=== PATIENT | female | born 1975 ===

== ENCOUNTER 2017-11-25 13:08 | Emergency (ER) | payer OTHER ==
[2017-11-25 13:26] VITALS: RESP 18; O2SAT 97
[2017-11-25] MEDS ORDERED: cefTRIAXone 250 MG, Lidocaine Hydrochloride 1% 1 ML IM ONE (14:10)
[2017-11-25 14:22] LABS: HCG,QUALITATIVE URINE NEGATIVE (NEGATIVE)
[2017-11-25 14:25] LABS: SQUAMOUS EPITHIAL 5 /hpf (0-5); URINE BACTERIA RARE (<OCC); URINE BILIRUBIN NEGATIVE (NEGATIVE); URINE BLOOD 3+ (NEGATIVE); URINE CLARITY Hazy (Clear); URINE COLOR Yellow (YELLOW); URINE GLUCOSE (UA) NORMAL (Normal); URINE LEUKOCYTE ESTERASE 3+ Leu/uL (Negative); URINE PROTEIN 1+ mg/dL (NEGATIVE); URINE UROBILINOGEN NORMAL mg/dL (0.2-1.0)
--- NOTE | 2017-11-25 14:32 | C.PDOC ---
History Of Present Illness 42 year old female presents to the ER with complaints of vaginal discharge and discomfort for the past 3 months. Patient also reports having some vaginal bleeding, but is unsure if it is her menses. Patient admits to having recent unprotected sex and possiblity of . Patient denies vomiting, diarrhea , dysuria, hematuria, fever, or flank pain. Time Seen by Provider: 11/25/17 13:22 Chief Complaint (Nursing): Female Genitourinary History Per: Patient History/Exam Limitations: no limitations Onset/Duration Of Symptoms: Days Current Symptoms Are (Timing): Still Present Severity: Mild Quality Of Discomfort: Unable To Describe, "Pain" Associated Symptoms: Other (Vaginal discharge and discomfort). denies: Fever, Nausea, Vomiting, Diarrhea, Urinary Symptoms Alleviating Factors: None Recent travel outside of the [place]: No Abnormal Vaginal Bleeding: Yes Past Medical History Reviewed: Historical Data, Nursing Documentation, Vital Signs Vital Signs: Last Vital Signs Temp 98.8 F 11/25/17 14:48 Pulse 87 11/25/17 14:48 Resp 18 11/25/17 14:48 BP 115/75 11/25/17 14:48 Pulse Ox 97 11/25/17 17:49 - Medical History PMH: Back Problems (CHRONIC BACK PAIN) Family History: States: No Known Family Hx - Social History Hx Tobacco Use: No Hx Alcohol Use: No Hx Substance Use: No - Immunization History Hx Tetanus Toxoid Vaccination: No Hx Influenza Vaccination: No Hx Pneumococcal Vaccination: No Review Of Systems Constitutional: Negative for: Fever, Chills Cardiovascular: Negative for: Chest Pain Respiratory: Negative for: Cough, Shortness of Breath Gastrointestinal: Negative for: Nausea, Vomiting, Diarrhea, Hematochezia, Hematemesis Genitourinary: Positive for: Vaginal Discharge, Vaginal Bleeding, Other ( Vaginal discomfort). Negative for: Dysuria, Hematuria Skin: Negative for: Rash Physical Exam - Physical Exam Appears: Well, Non-toxic, No Acute Distress Skin: Normal Color, Warm, Dry Eye(s): bilateral: Normal Inspection Oral Mucosa: Moist Cardiovascular: Rhythm Regular Respiratory: Normal Breath Sounds, No Rales, No Rhonchi, No Wheezing Gastrointestinal/Abdominal: Normal Exam, Bowel Sounds, Soft, No Tenderness Pelvic: Normal Bimanual Exam, No Vaginal Bleeding, Vaginal Discharge (Thin scant white), No Cervical Motion Tenderness (Os is closed, normal appearing cervix, no lesions), No Adnexal Tenderness, Other (Os is closed, normal appearing cervix) Neurological/Psych: Oriented x3 ED Course And Treatment O2 Sat by Pulse Oximetry: 97 (Room air) Pulse Ox Interpretation: Normal Progress Note: UA, Upreg and GC/ chlamydia swab ordered. Patient given IM Rocephin and PO Azithromycin. Rx for metrogel given. Patient instructed to follow up with prior authorization nurse within 1 week, and she understands she should return to ED if symptoms worsen. Reevaluation Time: 14:30 Reassessment Condition: Improved Disposition Counseled Patient/Family Regarding: Studies Performed, Diagnosis, Need For Followup, Rx Given - Disposition Referrals: Asuncion Gao MD [Medical Doctor] - Disposition: HOME/ ROUTINE Disposition Time: 14:30 Condition: STABLE Additional Instructions: FOLLOW UP WITH YOUR DOCTOR/CLINIC IN 1-2 DAYS HAVE SEXUAL PARTNER(S) TESTED/TREATED RETURN TO ER IF SYMPTOMS WORSEN Prescriptions: Metronidazole [Metrogel-Vaginal] 1 ea VG HS #1 tube Instructions: Vaginal Discharge in Adults Forms: [facility] (Syriac), General Discharge Instructions Print Language: PERSIAN - Clinical Impression Clinical Impression: Cervicitis, Vaginal discharge - Scribe Statement The provider has reviewed the documentation as recorded by the Scribe Jeremy Wesley All medical record entries made by the Scribe were at my direction and personally dictated by me. I have reviewed the chart and agree that the record accurately reflects my personal performance of the history, physical exam, medical decision making, and the department course for this patient. I have also personally directed, reviewed, and agree with the discharge instructions and disposition.
[2017-11-25 14:49] VITALS: BP 115/75; PULSE 87; TEMP 98.8
== END 2017-11-25 14:50 | disposition home or self-care (01) ==
LOC: C.ER 13:08
DX: N89.8 Other specified noninflammatory disorders of vagina (principal); N72 Inflammatory disease of cervix uteri
CPT/HCPCS: 81001; 84703; 87086; 87491; 87591; 96372; 99284; J0696

== ENCOUNTER 2018-03-01 14:59 | Emergency (ER) | payer MEDICAID, OTHER ==
[2018-03-01 15:37] VITALS: RESP 18
[2018-03-01] MEDS ORDERED: Sodium Chloride 0.9% 1,000 ML IV STA (16:16)
[2018-03-01] MEDS ORDERED: Sodium Chloride 0.9% 1,000 ML ONE (16:26)
--- NOTE | 2018-03-01 16:39 | C.PDOC ---
History Of Present Illness 42 y/o female with history of Hiatal hernia and lives on [facility] presents to ED with c/o loose stool for 1 week. Patient states because she lives in [place] cannot cook, no refrigerator or microwave and only eats out. Patient reports loss of appetite associated with nausea and lightheadedness. Patient has history of vertigo but does not take medication. Patient denies fever, chills, recent travel, headache, blood in stool or any other complaints at this time. Time Seen by Provider: 03/01/18 15:41 Chief Complaint (Nursing): GI Problem History Per: Patient History/Exam Limitations: no limitations Onset/Duration Of Symptoms: Days Current Symptoms Are (Timing): Still Present Past Medical History Reviewed: Historical Data, Nursing Documentation, Vital Signs Vital Signs: Last Vital Signs Temp 98.3 F 03/01/18 15:36 Pulse 95 H 03/01/18 15:36 Resp 18 03/01/18 15:36 BP 118/75 03/01/18 15:36 Pulse Ox 99 03/01/18 15:36 - Medical History PMH: Back Problems (CHRONIC BACK PAIN), Hiatal Hernia Surgical History: No Surg Hx Family History: States: No Known Family Hx - Social History Hx Tobacco Use: No Hx Alcohol Use: No Hx Substance Use: No - Immunization History Hx Tetanus Toxoid Vaccination: No Hx Influenza Vaccination: No Hx Pneumococcal Vaccination: No Review Of Systems Constitutional: Negative for: Fever, Chills Gastrointestinal: Positive for: Nausea, Diarrhea. Negative for: Vomiting, Abdominal Pain Skin: Negative for: Rash Physical Exam - Physical Exam Additional Physical Exam Comments: Constitutional: No acute distress. Head: Normocephalic. Atraumatic. Eyes: PERRL. ENT: Moist mucous membranes. Neck: Supple. Cardiovascular: Regular rate. Radial pulse 2+ bilaterally. Chest: No tenderness. Respiratory: Clear to auscultation bilaterally. GI: Soft. Nontender. Nondistended. Back: No CVA tenderness. Musculoskeletal: No tenderness or swelling of extremities. Skin: No rash. Neurologic: Alert, no focal deficit. ED Course And Treatment - Laboratory Results Result Diagrams: 03/01/18 16:33 03/01/18 16:33 O2 Sat by Pulse Oximetry: 99 (RA) Pulse Ox Interpretation: Normal Medical Decision Making Medical Decision Making: Plan: Blood work, UA, Urine culture ordered. Meclizine and IV fluids administered. Labs unremarkable. Patient states currently on period. No distress. Discharged home, instructed to return to ED for any worsening pain, fever, vomiting, or any other problem. Disposition - Disposition Referrals: [facility] [Outside] Disposition: HOME/ ROUTINE Disposition Time: 17:40 Condition: STABLE Prescriptions: Ondansetron ODT [Zofran ODT] 4 mg PO Q8 #12 odt Instructions: Viral Gastroenteritis Forms: [facility] [employer] [facility] (Swazi) - Clinical Impression Clinical Impression: Diarrhea - Scribe Statement The provider has reviewed the documentation as recorded by the Scribregina Ackerman All medical record entries made by the Maribellibregina were at my direction and personally dictated by me. I have reviewed the chart and agree that the record accurately reflects my personal performance of the history, physical exam, medical decision making, and the department course for this patient. I have also personally directed, reviewed, and agree with the discharge instructions and disposition.
[2018-03-01 16:40] LABS: BASO % 0.4 % (0.0-2.0); EOS # 0.1 K/uL (0.0-0.7); EOS % 0.8 % (0.0-4.0); HEMOGLOBIN 14.7 g/dL (11.0-16.0); LYMPH % 21.3 % (20.0-40.0); MEAN CELL VOLUME 90.9 fL (81.0-99.0); MEAN CORPUSCULAR HEMOGLOBIN 30.9 pg (27.0-31.0); MEAN CORPUSCULAR HGB CONC 33.9 g/dL (33.0-37.0); MEAN PLATELET VOLUME 9.7 fL (7.2-11.7); MONO # 0.6 K/uL (0.0-0.8); MONO % 6.4 % (0.0-10.0); NEUT # 6.6 K/uL (1.8-7.0); NEUT % 71.1 % (50.0-75.0); RBC 4.76 Mil/uL (3.80-5.20); RED CELL DISTRIBUTION WIDTH 12.7 % (11.5-14.5); WHITE BLOOD COUNT 9.3 K/uL (4.8-10.8)
[2018-03-01 16:53] LABS: SQUAMOUS EPITHIAL 8 /hpf (0-5); URINE AMORPHOUS SEDIMENT FEW /ul (<OCC); URINE BACTERIA MANY (<OCC); URINE BILIRUBIN NEGATIVE (NEGATIVE); URINE BLOOD 3+ (NEGATIVE); URINE CLARITY Hazy (Clear); URINE COLOR Yellow (YELLOW); URINE GLUCOSE (UA) NORMAL (Normal); URINE LEUKOCYTE ESTERASE NEG Leu/uL (Negative); URINE PROTEIN 1+ mg/dL (NEGATIVE); URINE UROBILINOGEN NORMAL mg/dL (0.2-1.0)
[2018-03-01 16:54] LABS: HCG,QUALITATIVE URINE NEGATIVE (NEGATIVE)
[2018-03-01 16:59] LABS: ALB/GLOB RATIO 1.5 (1.0-2.1); ALBUMIN 4.4 g/dL (3.5-5.0); ALT/SGPT 25 U/L (9-52); AST/SGOT 33 U/L (14-36); BLOOD UREA NITROGEN 13 mg/dL (7-17); GFR NON-AFRICAN AMERICAN > 60; LIPASE 85 U/L (23-300)
[2018-03-01 17:56] VITALS: BP 119/81; PULSE 78; TEMP 98.5; O2SAT 100
== END 2018-03-01 18:10 | disposition home or self-care (01) ==
LOC: C.ER 14:59
DX: R19.7 Diarrhea, unspecified (principal)
CPT/HCPCS: 80053; 81001; 83690; 84703; 85025; 87086; 96361; 96374; 99284; J2405; J7030

== ENCOUNTER 2018-08-20 16:15 | Emergency (ER) | payer MEDICAID ==
--- NOTE | 2018-08-20 18:51 | C.PDOC ---
History Of Present Illness 43 y/o female pt presents to the ER c/o left ear pain for x1 week. Associated sx includes pain radiating to the left head and left neck. Pt denies fever, chills, or any other associated sx or complaints at this time. Time Seen by Provider: 08/20/18 16:58 Chief Complaint (Nursing): ENT Problem History Per: Patient History/Exam Limitations: None Onset/Duration Of Symptoms: Days (x7) Current Symptoms Are (Timing): Still Present Past Medical History Reviewed: Historical Data, Nursing Documentation, Vital Signs Vital Signs: Last Vital Signs Temp 98.5 F 08/20/18 16:26 Pulse 93 H 08/20/18 16:26 Resp 16 08/20/18 16:26 BP 109/73 08/20/18 16:26 Pulse Ox 98 08/20/18 16:26 Primary Care Provider: Asuncion Gao - Medical History PMH: Back Problems (CHRONIC BACK PAIN), Hiatal Hernia Family History: States: Unknown Family Hx - Social History Hx Tobacco Use: No Hx Alcohol Use: No Hx Substance Use: No - Immunization History Hx Tetanus Toxoid Vaccination: No Hx Influenza Vaccination: No Hx Pneumococcal Vaccination: No Review Of Systems Except As Marked, All Systems Reviewed And Found Negative. Constitutional: Positive for: Other (left head pain; radiated from left ear pain ). Negative for: Fever, Chills ENT: Positive for: Ear Pain (left ) Musculoskeletal: Positive for: Neck Pain (left; radiated from left ear pain ) Physical Exam - Physical Exam Appears: Non-toxic, No Acute Distress Skin: Warm, Dry Head: Normacephalic Ear(s): Bilateral: TM Erythema (L>R), Other (no drainage, no buldging ) Neck: Normal ROM, Trachea Midline, Supple, Other (non-tender ) Cardiovascular: Rhythm Regular Respiratory: Normal Breath Sounds Neurological/Psych: Oriented x3, Normal Speech ED Course And Treatment O2 Sat by Pulse Oximetry: 98 (RA) Pulse Ox Interpretation: Normal - CT Scan/US Head Other Rad Studies (CT/US): Read By Radiologist, Radiology Report Reviewed CT/US Interpretation: Name:KIEL CUBA Exam Date:August 20, 2018 6:04:16 PM EDT. Modality Type:CT. Description:CT - BRAIN. Gender:F Laterality:Not applicable. :71 Referring Physician:Keely Starr (DOMINGO). EXAM: CT Head Without IV contrast. CLINICAL HISTORY: Left side head and ear pain. TECHNIQUE: Axial computed tomography images of the head/brain without intravenous contrast. COMPARISON: None provided. FINDINGS: BRAIN: No acute intraparenchymal hemorrhage. No mass lesion. No CT evidence for acute territorial infarct. No midline shift or extra- axial collections. VENTRICLES: No hydrocephalus. ORBITS: The orbits are unremarkable. SINUSES AND MASTOIDS: The paranasal sinuses and mastoid air cells are clear. BONES: No fracture. SOFT TISSUES: Unremarkable. IMPRESSION: No acute intracranial abnormality. . Electronically signed on August 20, 2018 7:07:12 PM EDT by: Dheeraj Barrientos M.D., M.B.A., Certified By ABR. Fellowship Trained MRI and CT Specialist Progress Note: Plans: -- CT head Disposition - Disposition Referrals: Gael Burns MD [Staff Provider] - Disposition: HOME/ ROUTINE Disposition Time: 19:11 Condition: STABLE Additional Instructions: Follow up with PMD and ENT within 1-2 days. Return to ED if feel worse. Prescriptions: Amoxicillin/Clavulanate [Augmentin 875 MG-125 MG] 1 tab PO BID #20 tab Ibuprofen [Motrin Tab] 600 mg PO Q8 #30 tab Instructions: Ear Infections (Otitis Media) (DC) Forms: [facility] (Latvian) - Clinical Impression Clinical Impression: Otalgia, Headache - PA / [employer] / Resident Statement / has reviewed & agrees with the documentation as recorded. - Scribe Statement The provider has reviewed the documentation as recorded by the Placido Cordova Do All medical record entries made by the Scribe were at my direction and personally dictated by me. I have reviewed the chart and agree that the record accurately reflects my personal performance of the history, physical exam, medical decision making, and the department course for this patient. I have also personally directed, reviewed, and agree with the discharge instructions and disposition.
[2018-08-20] MEDS ORDERED: Amoxicillin-Clav 875-125 mg Tab PO STA (19:12)
[2018-08-20] MEDS ORDERED: Amoxicillin-Clav 875-125 mg Tab PO ONE (19:19)
[2018-08-20 19:29] VITALS: BP 107/74; PULSE 73; RESP 18; TEMP 98
[2018-08-20 19:30] VITALS: O2SAT 98
--- NOTE | 2018-08-21 09:28 | CT ---
Date of service: 08/20/2018 PROCEDURE: CT HEAD WITHOUT CONTRAST. HISTORY: left head/ear/pain, radiating to the neck COMPARISON: 10/20/2017 TECHNIQUE: Axial computed tomography images were obtained through the head/brain without intravenous contrast. Radiation dose: Total exam DLP = 1087.57 mGy-cm. This CT exam was performed using one or more of the following dose reduction techniques: Automated exposure control, adjustment of the mA and/or kV according to patient size, and/or use of iterative reconstruction technique. FINDINGS: HEMORRHAGE: No intracranial hemorrhage. BRAIN: No mass effect or edema. No atrophy or chronic microvascular ischemic changes. VENTRICLES: Unremarkable. No hydrocephalus. CALVARIUM: Unremarkable. PARANASAL SINUSES: Unremarkable as visualized. No significant inflammatory changes. MASTOID AIR CELLS: Unremarkable as visualized. No inflammatory changes. OTHER FINDINGS: None. IMPRESSION: Normal CT of the Head.
== END 2018-08-20 19:29 | disposition home or self-care (01) ==
LOC: C.ER 16:15
DX: H92.02 Otalgia, left ear (principal); R51 Headache
CPT/HCPCS: 70450; 81025; 96372; 99283; J1885